=== PATIENT | female | born 2000 | race Caucasian/White ===

== ENCOUNTER 2020-01-22 01:03 | Emergency (ER) | payer SELFPAY ==
[2020-01-22] MEDS ORDERED: Acetaminophen 500 MG TAB ONE (02:00)
[2020-01-22] MEDS ORDERED: Lorazepam 1 MG TAB ONE (02:00)
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
[2020-01-22] MEDS ORDERED: Iopamidol-370 76% 500 ML 1 ML ONE (14:07)
== END 2020-01-22 05:24 | disposition home or self-care (01) ==
LOC: ERS 01:03
DX: S01.01XA Laceration without foreign body of scalp, initial encounter (principal); S00.12XA Contusion of left eyelid and periocular area, initial encounter; F41.9 Anxiety disorder, unspecified; F32.9 Major depressive disorder, single episode, unspecified; Y04.2XXA Assault by strike against or bumped into by another person, initial encounter
CPT/HCPCS: 12001; 70450; 70486; 70491; Q9967